=== PATIENT | female | born 1995 | race Caucasian/White ===

== ENCOUNTER → 2018-06-28 | Outpatient (CLI) | payer BC ==
--- NOTE | 2018-06-28 14:04 | CPEEG ---
DATE OF STUDY: INTERPRETATION: Normal EEG during wakefulness and sleep. There were no potentially epileptogenic ab normalities present in the recording. REPORT: This EEG contains 10 Hz alpha activity of the posterior head regions. The background activi ty had generally moderately high amplitudes, this is a normal feature for age. There was no abnormal activation at rest, during photic stimulation or hyperventilation. The patient became drowsy and in termittently fell asleep during the study. The recording contained intermittent high amplitude poly frequency drowsy bursts. This is a normal drowsy pattern. There was no abnormal activation during d rowsiness, sleep, or during times of arousal. /[id number]/MODL
== END ==
LOC: FCPNEURO 11:45
PROVIDERS: ATTEND Psychiatry & Neurology Clinical Neurophysiology
DX: R55 Syncope and collapse (principal)